=== PATIENT | female | born 1950 | race Hispanic/Latino ===

== ENCOUNTER → 2021-01-20 | Outpatient (CLI) | payer MEDICARE | END | disposition home or self-care (01) | LOC: SHCH 09:37 | PROVIDERS: ATTEND Internal Medicine Cardiovascular Disease | DX: R94.31 Abnormal electrocardiogram [ECG] [EKG] (principal) | CPT/HCPCS: 93306; 93356 ==

== ENCOUNTER → 2021-03-26 | Outpatient (CLI) | payer MEDICARE | END | disposition home or self-care (01) | LOC: SHCH 08:41 → EDUNIT# 08:50 | PROVIDERS: ATTEND Internal Medicine Cardiovascular Disease | DX: I71.4 Abdominal aortic aneurysm, without rupture (principal) | CPT/HCPCS: 93978 ==

== ENCOUNTER → 2021-04-09 | Outpatient (CLI) | payer OTHER | END | disposition home or self-care (01) | LOC: EDUNIT# 02-18 14:00 → OIH 10:05 | PROVIDERS: ATTEND Internal Medicine Cardiovascular Disease | DX: Z13.6 Encounter for screening for cardiovascular disorders (principal) | CPT/HCPCS: 75571 ==

== ENCOUNTER → 2021-07-28 | Outpatient (CLI) | payer MEDICARE, OTHER | END | disposition home or self-care (01) | LOC: RAH 11:19 | PROVIDERS: ATTEND Neurological Surgery | DX: M47.817 Spondylosis without myelopathy or radiculopathy, lumbosacral region (principal); M48.07 Spinal stenosis, lumbosacral region; M53.2X8 Spinal instabilities, sacral and sacrococcygeal region | CPT/HCPCS: 72195 ==

== ENCOUNTER 2024-02-09 05:53 | Observation (INO) | payer MEDICARE ==
[2024-02-07 13:50] LABS: BASOPHILS # (AUTO) 0.03 K/uL (0.00-0.20); BASOPHILS % (AUTO) 0.6 % (0.0-5.0); EOSINOPHILS # (AUTO) 0.16 K/uL (0.00-0.70); EOSINOPHILS % (AUTO) 3.1 % (0.0-8.0); IMMATURE GRANULOCYTE ABSOLUTE 0.02 K/uL (0-1); LYMPHOCYTES # (AUTO) 0.8 K/uL (1.0-4.8); LYMPHOCYTES % (AUTO) 14.7 % (21.0-51.0); MEAN CORPUSCULAR HEMOGLOBIN 31.8 pg (27.0-33.0); MEAN CORPUSCULAR HGB CONC 32.8 g/dL (32.0-36.0); MEAN CORPUSCULAR VOLUME 96.8 fL (79-99); MONOCYTES # (AUTO) 0.6 K/uL (0.1-1.0); MONOCYTES % (AUTO) 10.5 % (3.0-13.0); NEUTROPHILS # (AUTO) 3.7 K/uL (1.8-7.7); NEUTROPHILS % (AUTO) 70.7 % (40.0-77.0); PLATELET COUNT (AUTO) 241 K/uL (130-400); RED BLOOD CELL COUNT(AUTO) 4.03 MIL/uL (4.00-5.50); RED CELL DISTRIBUTION WIDTH 15.4 % (11.0-15.5); WHITE BLOOD COUNT (AUTO) 5.2 K/uL (4.8-10.8)
[2024-02-07 14:00] LABS: CREATININE 0.7 mg/dL (0.5-1.0); POTASSIUM 3.8 mmol/L (3.5-5.1)
[2024-02-07 14:27] VITALS: BP 102/63; PULSE 70; RESP 17
[~2024-02-09] VITALS: Ht 162.6 cm; Wt 73.3 kg
[2024-02-09] VITALS (24 sets, daily range): BP systolic 121–150; BP diastolic 53–81; PULSE 51–78; RESP 15–19; O2SAT 95–98
[~2024-02-09 05:53] MED LIST: ALEN70TA80 PO; ESTRADIOL PO; FOLIC ACID PO; LEVO112C4 PO; MELO-106 PO; METH2.5T6 PO; OMEP40CA21 PO
[2024-02-09] MEDS: LACTATED RINGERS 1000ML 1,000 ML IV ONE (06:47)
[2024-02-09] MEDS: CEFAZOLIN SODIUM 2 GM VIAL ONE (06:47)
[2024-02-09] MEDS ORDERED: HYDROMORPHONE 1 MG INJ ONE (07:19)
[2024-02-09] MEDS ORDERED: SUGAMMADEX SODIUM 200 MG/2 ML VIAL IV ONE (07:19)
[2024-02-09] MEDS ORDERED: PROPOFOL 10 MG/ML 20ML VIAL IV ONE (07:26)
[2024-02-09] MEDS ORDERED: ROCURONIUM BROMIDE 10MG/1ML 5ML VL ONE ×2 (07:26→08:53)
[2024-02-09] MEDS ORDERED: GLYCOPYRROLATE 0.2 MG/ML 5 ML VIAL ONE (07:26)
[2024-02-09] MEDS ORDERED: MIDAZOLAM HCL 1 MG/ML 2ML VIAL ONE (07:26)
[2024-02-09] MEDS ORDERED: LIDOCAINE PF 100MG/5ML (2%) SYRINGE 5ML ONE (07:26)
[2024-02-09] MEDS ORDERED: FENTANYL CITRATE PF 50 MCG/1 ML 2ML VIAL ONE (07:27)
[2024-02-09] MEDS ORDERED: PHENYLEPHRINE HCL 10 MG/ML 1ML VIAL IV ONE ×2 (07:27→08:38)
[2024-02-09] MEDS: BUPIVACAINE/PF 0.25% 30ML VIAL IJ ONE (08:26)
[2024-02-09] MEDS ORDERED: ONDANSETRON 4MG INJ ONE ×2 (08:37→09:48)
[2024-02-09] MEDS: METOCLOPRAMIDE 10 MG/2 ML VIAL ONE (10:28)
[2024-02-09] MEDS ORDERED: HYDROMORPHONE 0.5 MG SYG (0.5MG/0.5ML) IVP PRN (10:30)
[2024-02-09] MEDS ORDERED: ONDANSETRON 4MG INJ IVP PRN (10:30)
[2024-02-09] MEDS ORDERED: HYDROCODONE/ACETAMINOPHEN 5/325 MG TAB PO PRN ×2 (10:30)
[2024-02-09] MEDS: LACTATED RINGERS 1000ML 1,000 ML IV SCH (12:28)
[2024-02-09] MEDS: FAMOTIDINE 20MG VIAL IV SCH (20:26)
[2024-02-09] MEDS: KETOROLAC 15MG/ML VIAL (15MG/ML) IV PRN (20:27)
[2024-02-10] VITALS: BP 115/58; PULSE 69; RESP 22
[2024-02-10 04:00] VITALS: BP 125/75; PULSE 64; RESP 20
[2024-02-10 07:15] VITALS: BP 138/78; PULSE 72; RESP 18
[2024-02-10] MEDS: ENOXAPARIN SODIUM 30 MG/0.3 ML SQ SCH (07:50)
[2024-02-10 08:30] VITALS: O2SAT 96
== END 2024-02-10 12:09 | disposition home or self-care (01) ==
LOC: DAH 05:53 → DAHIP 05:54 → 4AH 11:15
PROVIDERS: ADMIT Surgery; ATTEND Surgery
DX: K44.9 Diaphragmatic hernia without obstruction or gangrene (principal); K21.00 Gastro-esophageal reflux disease with esophagitis, without bleeding; R13.10 Dysphagia, unspecified; E03.9 Hypothyroidism, unspecified; M06.9 Rheumatoid arthritis, unspecified; K80.20 Calculus of gallbladder without cholecystitis without obstruction; Z90.710 Acquired absence of both cervix and uterus; Z79.899 Other long term (current) drug therapy
CPT/HCPCS: 80048; 85025; 86850; 86900; 86901; 36415; 43282; 96374; 96375; 96376; 96372; 97161; 97116; A6260; G0378 ×24; J7030; A4215 ×2; J7120; J3490 ×4; J3010; J1170; J0665; J2001; J2250; J2704; J2405 ×2; J2765; J1885; J2371 ×2; J0690; C1769 ×3; G0168; A4649 ×3; A4930 ×3; C1781; A4223; A4222; A4221; A4663; A4600; J1650; 43235